=== PATIENT | female | born 1990 | race Caucasian/White ===

== ENCOUNTER 2017-02-25 20:31 | Emergency (ER) | payer MEDICARE, MEDICAID ==
--- NOTE | ~2017-02-25 | ER ---
PATIENT'S NAME: FRANCHESCA HAMMOND [facility] AGE: 26 Y [address] ROOM: [place] [address] LOCATION: [facility] ADMIT DATE: 02/25/2017 ER/Outpatient Report DISCHARGE DATE: 02/26/2017 FAMILY PHYSICIAN: Mabel Berry MD ATTENDING PHYSICIAN: Andrei Florez Time of Arrival: 2031 hours. Time of Evaluation: 2100 hours. CHIEF COMPLAINT: Abdominal pain. HISTORY OF PRESENT ILLNESS: The patient is a 26-year-old female, who presents to the emergency department today with chief complaint of abdominal pain. She reports this started about 5 hours prior to arrival. She does have some urinary frequency and painful urination. Denies any fevers or chills. Does have some nausea, no vomiting. Denies any blood in her stool. No dark tarry stools. It is sharp, it is currently 8/10 in severity. PAST MEDICAL HISTORY: Frequent UTIs, kidney reflux, and spina bifida. PAST SURGICAL HISTORY: Urethra and ureters, legs, and bladder. SOCIAL HISTORY: The patient denies any tobacco, alcohol, or illicit drug use. ALLERGIES: ZOFRAN AND IV CONTRAST. MEDICATIONS: 1. Sodium bicarbonate. 2. Lisinopril. 3. Zyrtec. 4. Bactrim. 5. Keflex. 6. MiraLax. REVIEW OF SYSTEMS: All systems are reviewed by myself and are negative with the exception of those discussed in the HPI and past medical history. PHYSICAL EXAMINATION: PATIENT'S NAME: FRANCHESCA HAMMOND [facility] AGE: 26 Y [address] ROOM: [place] [address] LOCATION: [facility] ADMIT DATE: 02/25/2017 ER/Outpatient Report DISCHARGE DATE: 02/26/2017 FAMILY PHYSICIAN: Mabel Berry MD ATTENDING PHYSICIAN: Andrei Florez VITAL SIGNS: Weight 68.6 kg. Blood pressure 136/76, pulse 102, respiratory rate 18, temperature 99.9, and oxygen saturation 97% on room air. GENERAL: The patient is a 26-year-old female, who appears at stated age, in no acute distress. HEENT: Head: Normocephalic, atraumatic. Pupils are equal, round, and reactive to light. Mucous membranes are moist. NECK: Supple. There is no nuchal rigidity. CARDIOVASCULAR: Tachycardic. No murmurs, rubs, or gallops. LUNGS: Clear to auscultation bilaterally. No wheezes, rales, or rhonchi. ABDOMEN: Soft. Mild right lower quadrant tenderness to palpation. There is no rebound, rigidity, or guarding. Positive bowel sounds. MUSCULOSKELETAL: The patient moves all 4 extremities. SKIN: Warm and dry. There are no rashes or lesions noted. LABORATORY DATA AND X-RAYS: Labs and x-rays are obtained. Lactate is normal. CBC: White blood cell count 11.7, otherwise normal. CMP is unremarkable except for BUN 35 and creatinine 2.0. LFTs are normal. Urinalysis shows 500 leukocyte esterase and protein, 150 blood, 50 to 100 wbc's, 10 to 20 rbc's, 0 to 2 epithelials, rare bacteria, few wbc's. Urine hCG is negative. Procalcitonin is less than 0.05. IMPRESSION: 1. Acute urinary tract infection, suspect bladder. 2. Acute nonsurgical right lower quadrant abdominal pain, likely due to acute urinary tract infection, suspect bladder. 3. Initial visit. EMERGENCY DEPARTMENT COURSE: The patient is brought back to the examination room. Seen and evaluated by myself. IV is established, and the patient is given a liter of normal saline. She is given 30 mg of Toradol IV as well as 25 mg of Benadryl IV. she was initially given Rocephin [address] scan of the abdomen and pelvis was obtained. I did discuss the results with the radiologist. It does show chronic kidney disease with chronic hydronephrosis. There is no evidence of stone. The appendix does appear normal. I discussed the results with the patient. She does feel much improved at this time. Her abdominal exam is repeated. She continues to have a nonsurgical abdominal exam at this time. We have given her 1 g of Rocephin IV. I will restart her on Keflex. Urine cultures are pending. She is to follow up with Dr. Meyers in 1 to 2 days for re-evaluation. The patient is agreeable without further questions at this time. DISPOSITION: The patient is discharged to home in good condition. PATIENT'S NAME: FRANCHESCA HAMMOND [facility] AGE: 26 Y [address] ROOM: [place], [place] [address] LOCATION: [facility] ADMIT DATE: 02/25/2017 ER/Outpatient Report DISCHARGE DATE: 02/26/2017 FAMILY PHYSICIAN: Mabel Berry MD ATTENDING PHYSICIAN: Andrei Florez DO VERONICA RICE/domingo /[id number] d: 02/26/17 0856 t: 02/26/17 1923, OUTPATIENT REPORT
[2017-02-25 21:42] LABS: BASOPHIL % 0.3 %; EOSINOPHIL # 0.2 K/uL (0.0-0.5); EOSINOPHIL % 1.8 %; HEMATOCRIT 39.1 % (33.0-46.0); IMMATURE GRANULOCYTE # 0.1 K/uL (0.0-0.3); IMMATURE GRANULOCYTE % 0.4 %; LYMPHOCYTE # 1.8 K/uL (0.8-4.0); LYMPHOCYTE % 15.1 %; MCHC 33.2 gm/dL (32.0-36.5); MCV 90.3 fl (83.0-98.0); MONOCYTE # 1.3 K/uL (0.0-1.0); MONOCYTE % 11.2 %; MPV 9.9 fl (9.4-12.4); NEUTROPHIL # (ANC) 8.3 K/uL (1.8-7.8); NEUTROPHIL % 71.2 %; NRBC % 0 /100WBC (0-0.00); PLATELET COUNT 292 K/uL (150-450); RBC 4.33 M/uL (3.50-5.00); RDW-CV 12.4 % (11.9-14.6); WBC 11.7 K/uL (4.0-11.0)
[2017-02-25 22:02] LABS: BILIRUBIN URINE NEGATIVE (NEGATIVE); BLOOD URINE 150 /UL (NEGATIVE); COLOR URINE YELLOW (YELLOW); GLUCOSE URINE NEGATIVE (NEGATIVE); KETONE URINE NEGATIVE (NEGATIVE); LEUKOCYTES URINE 500 /UL (NEGATIVE); NITRITE URINE NEGATIVE (NEGATIVE); PROTEIN URINE 500 mg/dL (NEGATIVE); TURBIDITY URINE 2+ (CLEAR); UROBILINOGEN URINE NORMAL (NORMAL)
[2017-02-25 22:05] LABS: ALBUMIN 3.6 gm/dL (3.5-5.0); ANION GAP 11.9 (10.0-19.0); CALCIUM 9.2 mg/dL (8.5-10.5); POTASSIUM 4.9 mMol/L (3.7-5.1); TOTAL BILIRUBIN 0.3 mg/dL (0.0-1.5); TOTAL PROTEIN 8.2 g/dL (6.0-8.4)
[2017-02-25 22:08] LABS: WBC URINE 50-100 #/HPF (NEGATIVE)
[2017-02-25 22:09] LABS: BACTERIA URINE RARE (NEGATIVE); EPITHELIAL URINE 0-2 #/HPF (NEGATIVE); WBC CLUMPS URINE FEW (NEGATIVE)
== END 2017-02-26 00:09 | disposition disaster alternative care site (69) ==
LOC: GMED 20:31
PROVIDERS: Emergency Medicine
PROC: 0T9B70Z Drainage of Bladder with Drainage Device, Via Natural or Artificial Opening (ICD-10-PCS; principal; 2017-02-25)
DX: N39.0 Urinary tract infection, site not specified (principal); Q05.9 Spina bifida, unspecified; Z98.890 Other specified postprocedural states; Z88.8 Allergy status to other drugs, medicaments and biological substances; Z79.899 Other long term (current) drug therapy; Z79.2 Long term (current) use of antibiotics
CPT/HCPCS: J0696; J0780; J1200; J1885; J7030; J7050